=== PATIENT | female | born 1940 | race Two or more races ===

== ENCOUNTER 2021-07-04 03:34 | Emergency (ER) | payer OTHER ==
[~2021-07-04] VITALS: Ht 152.4 cm; Wt 77.1 kg
[2021-07-04] MEDS ORDERED: LABETALOL HCL 5 MG/ML 4ML SYRINGE IV ONE ×2 (04:00→04:29)
[2021-07-04 06:18] LABS: Basophils # (auto) 0 10 ^3/uL (0-0.2); Basophils % (auto) 0.7 % (0.0-2.0); Eosinophils # (auto) 0.2 10 ^3/uL (0-0.8); Eosinophils % (auto) 3.7 % (0.0-7.0); Hematocrit 33.9 % (36.0-46.0); Hemoglobin 11.3 g/dL (12.2-16.2); Mean Corpuscular Hemoglobin 30.7 pg (28.0-32.0); Mean Corpuscular Hgb Conc. 33.3 g/dL (32.0-36.0); Mean Corpuscular Volume 92.4 fL (80.0-100.0); Monocytes # (auto) 0.4 10 ^3/uL (0-1.3); Monocytes % (auto) 6.1 % (0.0-12.0); Neutrophils # (auto) 4.4 10 ^3/uL (1.6-8.6); Neutrophils % (auto) 72.5 % (37.0-80.0); Nucleated Red Blood Cells % 0.1 %; Red Blood Cells 3.67 10^6/uL (4.0-5.20); Red Cell Distribution Width 13.4 % (11.8-14.3); White Blood Cell 6.1 10^3/uL (4.4-10.8)
[2021-07-04 06:33] LABS: Calcium 9.1 mg/dL (8.5-10.1); Potassium 5.4 mmol/L (3.5-5.1)
[2021-07-04] MEDS ORDERED: cloNIDine HCL 0.1 MG TAB PO ONE (06:45)
[2021-07-04 08:25] LABS: Partial Thromboplastin Time 27.3 sec (23.6-33.0)
[2021-07-04 10:48] VITALS: BP 131/61
== END 2021-07-04 10:57 | disposition home or self-care (01) ==
LOC: ER 03:34
DX: M43.17 Spondylolisthesis, lumbosacral region (principal); I16.0 Hypertensive urgency; I10 Essential (primary) hypertension; E11.9 Type 2 diabetes mellitus without complications; Z88.6 Allergy status to analgesic agent; W18.39XA Other fall on same level, initial encounter; Y93.89 Activity, other specified; Y92.89 Other specified places as the place of occurrence of the external cause; Y99.8 Other external cause status
CPT/HCPCS: 36415; 72100; 72170; 80048; 84484; 85025; 85610; 85730; 93005; 96374; 99285; J3490